=== PATIENT | female | born 1990 | race American Indian/Alaskan Native ===

== ENCOUNTER 2019-02-23 12:31 | Emergency (ER) | payer SELFPAY ==
--- NOTE | 2019-02-23 12:50 | Emergency Department Report ---
Blank Doc - Documentation Documentation: 28 y o female presents with vaginal d/c x 1 month ago but lost her prescription bottle to metronadizole was dx with BV denies dysuria, pelv pain, LMP:02/2019 [facility]
[2019-02-23 12:51] VITALS: BP 125/78
[2019-02-23 13:59] LABS: Mucus,Urine FEW /HPF; WBC,Urine < 1.0 /HPF (0.0-6.0)
[2019-02-23 14:00] LABS: Bilirubin,Urine NEG (Negative); Blood,Urine NEG (Negative); Color,Urine Yellow (Yellow); Protein,Urine <15 mg/dL mg/dL (Negative); Urobilinogen,Urine < 2.0 mg/dL (<2.0)
--- NOTE | 2019-02-23 14:06 | Emergency Department Report ---
ED Female HPI - General Chief complaint: Urogenital-Female Stated complaint: DISCHARGE Time Seen by Provider: 02/23/19 12:46 Source: patient Mode of arrival: Ambulatory Limitations: No Limitations - History of Present Illness Initial comments: 28-year-old -Ira[place] female presents to the emergency room with complaint of vaginal discharge with odor times one month. Patient reports that she had a prescription proximal one month ago and only took a few pills that had lost a bottle. Patient now comes back still with complaint of vaginal discharge with odor. Patient reports her last menstrual period was 02/12/2019. Patient denies any dysuria and no abdominal pain and vaginal bleeding. Patient does admit to be sexually active and unprotected one partner. Patient is 6. 3. Patient reports she had her tubes tied. Patient has no past medical history currently takes no medications on a daily basis and has no known drug allergies. MD Complaint: vaginal discharge Onset/Timin -: month(s) Are you Now?: No Last Menstrual Period: 02/12/19 EDC: 11/19/19 Associated Symptoms: vaginal discharge (with odor) - Related Data Sexually active: Yes : 6 Para: 3 Previous Rx's Medication Instructions Recorded Last Taken Type Fluconazole [Diflucan TAB] 150 mg PO ONCE #1 tablet 02/23/19 Unknown Rx metroNIDAZOLE [Flagyl] 500 mg PO Q8HR #21 tablet 02/23/19 Unknown Rx Allergies Allergy/AdvReac Type Severity Reaction Status Date / Time No Known Allergies Allergy Verified 02/23/19 12:32 ED Review of Systems ROS: Stated complaint: DISCHARGE Other details as noted in HPI Comment: All other systems reviewed and negative Constitutional: denies: chills, fever Eyes: denies: eye pain, eye discharge, vision change ENT: denies: ear pain, throat pain Respiratory: denies: cough, shortness of breath, wheezing Cardiovascular: denies: chest pain, palpitations Endocrine: no symptoms reported Gastrointestinal: denies: abdominal pain, nausea, diarrhea Genitourinary: discharge Musculoskeletal: denies: back pain, joint swelling, arthralgia Skin: denies: rash, lesions Neurological: denies: headache, weakness, paresthesias ED Past Medical Hx - Past Medical History Previous Medical History?: No - Surgical History Past Surgical History?: No - Social History Smoking Status: Never Smoker - Medications Home Medications: Home Medications Medication Instructions Recorded Confirmed Last Taken Type Fluconazole [Diflucan TAB] 150 mg PO ONCE #1 tablet 02/23/19 Unknown Rx metroNIDAZOLE [Flagyl] 500 mg PO Q8HR #21 tablet 02/23/19 Unknown Rx ED Physical Exam - General Limitations: No Limitations General appearance: alert, in no apparent distress - Head Head exam: Present: atraumatic, normocephalic - Eye Eye exam: Present: normal appearance - ENT ENT exam: Present: mucous membranes moist - GI/Abdominal GI/Abdominal exam: Present: soft, normal bowel sounds. Absent: distended, tenderness, guarding - External exam: Present: normal external exam Speculum exam: Present: vaginal discharge Bi-manual exam: Present: normal bi-manual exam. Absent: adnexal tenderness, adnexal mass - Extremities Exam Extremities exam: Present: normal inspection - Back Exam Back exam: Present: normal inspection - Neurological Exam Neurological exam: Present: CN II-XII intact, normal gait - Psychiatric Psychiatric exam: Present: normal affect, normal mood - Skin Skin exam: Present: warm, dry, intact, normal color. Absent: rash ED Course Vital Signs 02/23/19 12:48 Temperature 98.6 F Pulse Rate 76 Respiratory 18 Rate Blood Pressure 125/78 O2 Sat by Pulse 100 Oximetry ED Medical Decision Making - Medical Decision Making Patient has been evaluated by this provider at [facility]. She is a 28-year-old female comes in for 1 month of vaginal discharge with odor. With no abdominal pain no dysuria. Patient's wet prep came back greater than 20% clue cells and few yeast. Patient be treated for bacterial vaginosis and a prescription for Diflucan Critical care attestation.: If time is entered above; I have spent that time in minutes in the direct care of this critically ill patient, excluding procedure time. ED Disposition Clinical Impression: BV (bacterial vaginosis), Vaginal candidiasis Disposition: TO HOME OR SELFCARE Is pt being admited?: No Does the pt Need Aspirin: No Condition: Stable Instructions: Bacterial Vaginosis (ED), Vulvovaginal Candidiasis (ED) Additional Instructions: Complete antibiotics as prescribed. Follow up with the primary care provider or her [employer] specialist. Prescriptions: Fluconazole [Diflucan TAB] 150 mg PO ONCE #1 tablet metroNIDAZOLE [Flagyl] 500 mg PO Q8HR #21 tablet [facility] [Primary Care Provider[facility] - 3-5 Days Forms: STI Treatment and Prevention
== END 2019-02-23 14:15 | disposition home or self-care (01) ==
LOC: ED 12:31
DX: B37.3 Candidiasis of vulva and vagina (principal); N76.0 Acute vaginitis; B96.89 Other specified bacterial agents as the cause of diseases classified elsewhere
CPT/HCPCS: 81001; 87210; 87591

== ENCOUNTER 2019-04-04 19:11 | Emergency (ER) | payer OTHER ==
--- NOTE | 2019-04-04 19:20 | Emergency Department Report ---
Blank Doc - Documentation Documentation: This is a 28-year-old female that presents with vaginal discharge and irritati on. This initial assessment/diagnostic orders/clinical plan/treatment(s) is/are subject to change based on patient's health status, clinical progression and re- assessment by fellow clinical providers in the ED. Further treatment and workup at subsequent clinical providers discretion. Patient/guardians urged not to elope from the ED as their condition may be serious if not clinically assessed and managed. Initial orders include: 1- Patient sent to [facility] for further evaluation and treatment 2- UA 3- wet prep/GC swabs
[2019-04-04 19:21] VITALS: BP 132/75
[2019-04-04 20:16] LABS: Bacteria,Urine 1+ /HPF (Negative); Bilirubin,Urine NEG (Negative); Blood,Urine NEG (Negative); Color,Urine Yellow (Yellow); Mucus,Urine 3+ /HPF; Protein,Urine <15 mg/dL mg/dL (Negative)
[2019-04-04 20:20] LABS: HCG Qualitative,Urine Negative (Negative)
--- NOTE | 2019-04-04 22:05 | Emergency Department Report ---
ED Female HPI - General Chief complaint: Urogenital-Female Stated complaint: VAGINAL DISCHARGE DISCOMFORT ITCHING Time Seen by Provider: 04/04/19 19:19 Source: patient Mode of arrival: Ambulatory Limitations: No Limitations - History of Present Illness Initial comments: This is a 28-year-old -[place] female who presents to the emergency room with vaginal discharge and itching for 1-2 weeks. Patient reports having similar symptoms 1 month ago and treated for bacterial vaginitis which never improved symptoms. Patient reports increased discharge and odor. Her last menstrual period was 04/01/2019, A2. She denies urinary frequency, urgency, dysuria, hematuria, pelvic pain, or back pain. MD Complaint: vaginal discharge Onset/Timin -: week(s) Location: labia Radiation: non-radiating Severity: mild Severity scale (0 -10): 0 Consistency: constant Improves with: none Worsens with: none Are you Now?: No Last Menstrual Period: 04/01/19 EDC: 01/06/20 Associated Symptoms: vaginal discharge. denies: vaginal bleeding, abdominal pain, nausea/vomiting, fever/chills, headaches, loss of appetite, dysuria, hematuria, rash, seizure, shortness of breath, syncope, weakness - Related Data Sexually active: Yes : 5 Para: 3 A: 2 Previous Rx's Medication Instructions Recorded Last Taken Type Fluconazole [Diflucan TAB] 150 mg PO ONCE #1 tablet 02/23/19 Unknown Rx metroNIDAZOLE [Flagyl] 500 mg PO Q8HR #21 tablet 02/23/19 Unknown Rx metroNIDAZOLE [Flagyl TAB] 500 mg PO Q8HR #14 tablet 04/04/19 Unknown Rx Allergies Allergy/AdvReac Type Severity Reaction Status Date / Time No Known Allergies Allergy Verified 02/23/19 12:32 ED Review of Systems ROS: Stated complaint: VAGINAL DISCHARGE DISCOMFORT ITCHING Other details as noted in HPI Constitutional: denies: chills, fever Respiratory: denies: cough, shortness of breath, wheezing Cardiovascular: denies: chest pain, palpitations Gastrointestinal: denies: abdominal pain, nausea, diarrhea Genitourinary: discharge. denies: urgency, dysuria Musculoskeletal: denies: back pain, joint swelling, arthralgia Neurological: denies: headache, weakness, paresthesias Psychiatric: denies: anxiety, depression ED Past Medical Hx - Past Medical History Previous Medical History?: No - Surgical History Past Surgical History?: Yes Additional Surgical History: left ankle - Social History Smoking Status: Never Smoker Substance Use Type: Alcohol - Medications Home Medications: Home Medications Medication Instructions Recorded Confirmed Last Taken Type Fluconazole [Diflucan TAB] 150 mg PO ONCE #1 tablet 02/23/19 Unknown Rx metroNIDAZOLE [Flagyl] 500 mg PO Q8HR #21 tablet 02/23/19 Unknown Rx metroNIDAZOLE [Flagyl TAB] 500 mg PO Q8HR #14 tablet 04/04/19 Unknown Rx ED Physical Exam - General Limitations: No Limitations General appearance: alert, in no apparent distress - Respiratory Respiratory exam: Present: normal lung sounds bilaterally. Absent: respiratory distress - Cardiovascular Cardiovascular Exam: Present: regular rate, normal rhythm. Absent: systolic murmur, diastolic murmur, rubs, gallop - GI/Abdominal GI/Abdominal exam: Present: soft, normal bowel sounds. Absent: distended, tenderness, guarding, rebound, rigid - External exam: Present: normal external exam. Absent: erythema, swelling, lesions, lacerations, ecchymosis, bleeding Speculum exam: Present: vaginal discharge (malodorous frothy yellowish green discharge). Absent: erythema, cervical discharge, vaginal bleeding, foreign body, tissue, laceration Bi-manual exam: Present: normal bi-manual exam - Back Exam Back exam: Absent: CVA tenderness (R), CVA tenderness (L) - Neurological Exam Neurological exam: Present: alert, oriented X3 - Psychiatric Psychiatric exam: Present: normal affect, normal mood - Skin Skin exam: Present: warm, dry, intact, normal color. Absent: rash ED Course Vital Signs 04/04/19 19:20 Temperature 98.1 F Pulse Rate 88 Respiratory 18 Rate Blood Pressure 132/75 O2 Sat by Pulse 100 Oximetry ED Medical Decision Making - Lab Data Lab Results 04/04/19 Range/Units 19:39 Urine Color Yellow (Yellow) Urine Turbidity Slightly-cloudy (Clear) Urine pH 5.0 (5.0-7.0) Ur Specific [place] 1.027 (1.003-1.030) Urine Protein <15 mg/dl (Negative) mg/dL Urine Glucose (UA) Neg (Negative) mg/dL Urine Ketones Neg (Negative) mg/dL Urine Blood Neg (Negative) Urine Nitrite Neg (Negative) Urine Bilirubin Neg (Negative) Urine Urobilinogen 2.0 (<2.0) mg/dL Ur Leukocyte Esterase Lg (Negative) Urine WBC (Auto) 3.0 (0.0-6.0) /HPF Urine RBC (Auto) 2.0 (0.0-6.0) /HPF U Epithel Cells (Auto) 8.0 (0-13.0) /HPF Urine Bacteria (Auto) 1+ (Negative) /HPF Urine Mucus 3+ /HPF Urine HCG, Qual Negative (Negative) - Medical Decision Making This is a 28-year-old -Danish female who presents with vaginal discharge for 1 to 2 weeks. Patient was examined by me. Vitals are stable and in no acute distress. Labs were obtained. A pelvic exam was performed to retrieve wet prep, gonorrhea and chlamydia. The wet prep was positive for clue cells, many polymorphonuclear cells, Trichomonas, and negative yeast. Empirically treated with Rocephin 250 mg IM and azithromycin 1 g by mouth. Start metronidazole. Patient instructed to follow-up with the health department or broadcast maintenance technician for further ST on screening. Discharged home in stable condition. Discussed prevention options. F/U with PCP or Health Department. Critical care attestation.: If time is entered above; I have spent that time in minutes in the direct care of this critically ill patient, excluding procedure time. ED Disposition Clinical Impression: Vaginal discharge, Bacterial vaginitis, STD exposure Disposition: DC-01 TO HOME OR SELFCARE Is pt being admited?: No Does the pt Need Aspirin: No Condition: Stable Instructions: Bacterial Vaginosis (ED), Safe Sex (ED), Sexually Transmitted Diseases (ED) Additional Instructions: Complete full course of antibiotics as prescribed. Avoid drinking alcohol while taking antibiotics for 24 hours after completion. Follow up with a broadcast maintenance technician or the health department for full STD screening. Return to the emergency room only if worsening symptoms. Prescriptions: metroNIDAZOLE [Flagyl TAB] 500 mg PO Q8HR #14 tablet Referrals: WILVER CHARLES MD [Primary Care Provider] - 3-5 Days [facility] [Outside] - 3-5 Days [facility] [Provider Group] - 3-5 Days [facility] [Provider Group] - 3-5 Days [facility] [Outside] - 3-5 Days Forms: STI Treatment and Prevention Time of Disposition: 23:07
[2019-04-04] MEDS ORDERED: XYLOCAINE 1% MPF 5 mL INFILTRATI ONE (23:29)
[2019-04-04] MEDS ORDERED: ROCEPHIN IM ONE (23:29)
[2019-04-04] MEDS ORDERED: ZITHROMAX PO ONE (23:29)
== END 2019-04-05 00:20 | disposition home or self-care (01) ==
LOC: ED 19:11
DX: N76.0 Acute vaginitis (principal); B96.89 Other specified bacterial agents as the cause of diseases classified elsewhere; Z20.2 Contact with and (suspected) exposure to infections with a predominantly sexual mode of transmission
CPT/HCPCS: 81001; 81025; 87210; 87591; 96372; 99284; J0696